=== PATIENT | male | born 1935 | race Hispanic/Latino ===

== ENCOUNTER → 2017-07-12 | Outpatient (CLI) | payer MEDICARE, OTHER ==
[~2017-07-12] MED LIST: ASPIR 8181 MG PO; ATORVASTATIN CA20 MG PO; AUGMENTIN 875-1 EACH PO; CENTRUM SILVER1 EAC3 PO; CLOPIDOGREL75 MG PO; HYDRALAZINE HCL25 MG PO; ISOSORBIDE MONO30 MG PO; LOTREL 10-40 M1 EACH PO; METOPROLOL TART25 MG PO; NITROGLYCERIN0.4 MG SL; OMEPRAZOLE40 MG PO; RANEXA1000 MG PO; TAMSULOSIN HCL0.4 MG PO; TYLENOL WITH C1 EACH PO; VITAMIN D1000 UNI1 PO
--- NOTE | 2017-07-12 12:50 | Diagnostic Imaging Report ---
PROCEDURE: Frontal and lateral views of the chest. COMPARISON: Patients [facility], DX, CHEST SINGLE (PORTABLE), 01/23/2017, 1:06. INDICATIONS: COUGH, CHF FINDINGS: Lines/tubes: None. Lungs: The lungs are well inflated and clear. There is no evidence of pneumonia or pulmonary edema. Pleura: There is no pleural effusion or pneumothorax. Heart and mediastinum: Cardiac silhouette is normal in size. Pulmonary vasculature is normal. Atherosclerotic calcification of the thoracic aorta. CABG changes. Bones: No acute bony abnormality. Degenerative changes in the thoracic spine. Midline sternotomy wires. IMPRESSION: 1. No acute cardiopulmonary abnormalities. Art Lopez M.D. Dictated by: Art Lopez M.D. on 07/12/2017 at 12:50 Electronically approved by: Art Lopez M.D. on 07/12/2017 at 12:50
== END ==
LOC: RAD 11:35
PROVIDERS: ATTEND Internal Medicine
DX: I50.32 Chronic diastolic (congestive) heart failure (principal)
CPT/HCPCS: 71046